=== PATIENT | male | born 1965 | race Caucasian/White ===

== ENCOUNTER 2016-11-26 17:46 | Emergency (ER) | payer SELFPAY ==
[2016-11-26 17:57] VITALS: BP 159/86
[2016-11-26] MEDS ORDERED: Sodium Chloride 0.9% 10 ML Syringe FLUSH PRN (18:13)
[2016-11-26] MEDS ORDERED: Meclizine 12.5 MG Tab PO ONE ×2 (18:14→19:39)
[2016-11-26] MEDS ORDERED: Ondansetron 4 MG/2 ML SDV IVPUSH ONE ×2 (18:14→18:53)
[2016-11-26] MEDS ORDERED: Sodium Chloride 0.9% 1,000 ML IV ONE (18:16)
[2016-11-26] MEDS ORDERED: Ketorolac 30 MG/ML SDV IVPUSH ONE (18:16)
--- NOTE | 2016-11-26 18:17 | EDM.PDOC ---
ED HPI ENT - General Chief Complaint: Neurological Problem Stated Complaint: DIZZY/NAUSEA Time Seen by Provider: 11/26/16 18:00 Source of Information: Reports: Patient History Limitations: Reports: No limitations - History of Present Illness INITIAL COMMENTS - FREE TEXT/NARRATIVE: Gallo presents for evaluation and treatment of dizziness, nausea and vomiting. Patient reports that the dizziness started about 2 weeks ago. He states it has progressively gotten worse and he can no longer take the dizziness and nausea today. Reports that he vomited one time on the way over to the ER. He reports associated symptoms of headache, tinnitus and blurry vision. He reports he has been ill with a cough recently. He reports some chest pain and some shortness of breath which started today. He denies any syncopal episodes. He reports that several years ago he was wearing a hearing aid but no longer wears his does not help with his hearing deficits. Patient wears glassed. The patient was at the [place] [facility] but 10 days ago. Told that he more than likely had an inner ear infection. He has not been seen by a provider. He is unable to make this appointment the [place]. - Related Data Allergies/ADRs: Allergies Allergy/AdvReac Type Severity Reaction Status Date / Time No Known Allergies Allergy Verified 11/26/16 17:53 Home Meds: Home Meds Meclizine [Antivert] 25 mg PO TID PRN #15 tablet 11/26/16 [Rx] Ondansetron [Zofran ODT] 4 mg PO Q8H PRN #15 tab.dis 11/26/16 [Rx] Phenytoin Sodium Extended [Dilantin] 400 mg PO DAILY 11/26/16 [History] Past Medical History Neurological History: Reports: Other (see below) Other Neuro History: epilsepsy Social & Family History - Tobacco Use Smoking Status *Q: Current Every Day Smoker Years of Tobacco use: 25 Packs/Tins Daily: 1 ED ROS ENT - Review of Systems Review Of Systems: See Below Constitutional: Denies: fever, chills HEENT: Reports: Vision change (blurry vision; denies double vision). Denies: Ear pain Respiratory: Reports: shortness of breath, cough Cardiovascular: Reports: Chest pain GI/Abdominal: Reports: Nausea, Vomiting Neurological: Reports: dizziness, headache, gait disturbance. Denies: syncope ED EXAM, ENT - Physical Exam Exam: See Below Exam Limited By: No limitations General Appearance: alert, WD/WN, no apparent distress Eye Exam: bilateral eye: EOMI, nystagmus (with lateral gaze), PERRL Ears: normal external exam, normal canal, hearing grossly normal, normal TMs Nose: normal inspection Mouth/Throat: Normal inspection, Normal gums, Normal lips, Normal oropharynx, Normal teeth Neck: normal inspection Respiratory/Chest: no respiratory distress, lungs clear, normal breath sounds Cardiovascular: normal peripheral pulses, regular rate, rhythm, no murmur Neurological: alert, oriented, normal cognition Psychiatric: normal affect, normal mood Skin: Warm, Dry, Normal color EKG INTERPRETATION EKG Date: 11/26/16 Time: 18:20 Rhythm: NSR Rate (beats/min): 60 [place]: normal P-wave: present QRS: normal ST-T: normal QT: normal Comparison: NA - no prior EKG EKG Interpretation Comments: NSR at 60 bpm. no ACS. Left ventricular hypertrophy. Reviewed by myself and Dr. Olivo. Course - Vital Signs Last Recorded V/S: Last Vital Signs Temp 36.3 C 11/26/16 17:54 Pulse 58 L 11/26/16 17:54 Resp 18 11/26/16 17:54 BP 159/86 H 11/26/16 17:54 Pulse Ox 98 11/26/16 17:54 - Orders/Labs/Meds Labs: Laboratory Tests 11/26/16 11/26/16 Range/Units 18:00 18:00 WBC 6.69 (4.23-9.07) K/mm3 RBC 4.93 (4.63-6.08) M/mm3 Hgb 15.7 (13.7-17.5) gm/L Hct 46.3 (40.1-51.0) % MCV 93.9 H (79.0-92.2) fl MCH 31.8 (25.7-32.2) pg MCHC 33.9 (32.2-35.5) g/dl RDW Std Deviation 46.1 H (35.1-43.9) fL Plt Count 189 (163-337) K/mm3 MPV 10.2 (9.4-12.3) fl Neut % (Auto) 42.5 (34.0-67.9) % Lymph % (Auto) 40.7 (21.8-53.1) % [place] % (Auto) 12.7 H (5.3-12.2) % Eos % (Auto) 3.7 (0.8-7.0) Baso % (Auto) 0.3 (0.1-1.2) % Neut # 2.84 (1.78-5.38) K/mm3 Lymph # 2.72 (1.32-3.57) K/mm3 [place] # 0.85 H (0.30-0.82) K/mm3 Eos # 0.25 (0.04-0.54) K/mm3 Baso # 0.02 (0.01-0.08) K/mm3 Sodium 141 (136-145) mEq/L Potassium 3.9 (3.5-5.1) mEq/L Chloride 106 (98-107) mEq/L Carbon Dioxide 26 (21-32) mEq/L Anion Gap 12.9 (5-15) BUN 21 H (7-18) mg/dL Creatinine 1.0 (0.7-1.3) mg/dL Est Cr Clr Drug Dosing 88.38 mL/min Estimated GFR (MDRD) > 60 (>60) mL/min BUN/Creatinine Ratio 21.0 H (14-18) Glucose 108 H (74-106) mg/dL Calcium 8.7 (8.5-10.1) mg/dL Total Bilirubin 0.2 (0.2-1.0) mg/dL AST 18 (15-37) U/L ALT 40 (16-63) U/L Alkaline Phosphatase 104 (46-116) U/L CK-MB (CK-2) 0.9 (0-3.6) ng/ml Troponin I < 0.017 (0.00-0.056) ng/mL Total Protein 7.3 (6.4-8.2) g/dl Albumin 3.6 (3.4-5.0) g/dl Globulin 3.7 gm/dL Albumin/Globulin Ratio 1.0 (1-2) Meds: Medications Discontinued Medications Generic Name Dose Route Start Last Admin Trade Name Freq PRN Reason Stop Dose Admin Sodium Chloride 1,000 mls @ 999 mls/hr 11/26/16 18:16 11/26/16 18:23 Normal Saline IV 11/26/16 19:16 999 mls/hr ONETIME ONE Administration Promethazine HCl 12.5 mg/ 50.5 mls @ 100 mls/hr 11/26/16 19:38 11/26/16 20:02 Sodium Chloride IV 11/26/16 20:08 100 mls/hr ONETIME ONE Administration Sodium Chloride 500 mls @ 500 mls/hr 11/26/16 19:54 11/26/16 20:00 Normal Saline IV 11/26/16 20:53 500 mls/hr ONETIME ONE Administration Ketorolac Tromethamine 30 mg 11/26/16 18:16 11/26/16 18:22 Toradol IVPUSH 11/26/16 18:17 30 mg ONETIME ONE Administration Meclizine HCl 25 mg 11/26/16 18:14 11/26/16 18:22 Antivert PO 11/26/16 18:15 25 mg ONETIME ONE Administration Meclizine HCl 25 mg 11/26/16 19:39 Antivert PO 11/26/16 19:40 ONETIME ONE Ondansetron HCl 4 mg 11/26/16 18:14 11/26/16 18:22 Zofran IVPUSH 11/26/16 18:15 4 mg ONETIME ONE Administration Ondansetron HCl 4 mg 11/26/16 18:53 11/26/16 18:57 Zofran IVPUSH 11/26/16 18:54 4 mg ONETIME ONE Administration Sodium Chloride 10 ml 11/26/16 18:13 11/26/16 18:30 Saline Flush FLUSH 10 ml ASDIRECTED PRN Administration Keep Vein Open - Radiology Interpretation Free Text/Narrative:: Chest xray shows no acute intrathoracic process. - Re-Assessments/Exams Free Text/Narrative Re-Assessment/Exam: 11/26/16 21:10 Lab studies have returned. WBC is 6.69 communal at 15.7 platelets are 189. Trop is within normal limits at less than 0.017. CK-MBs within normal limits at 0.9. Sodium is 141, potassium is 3.9 chloride is 106. Anion gap is 2.9. Glucose is 108. I reviewed the chest x-ray, EKG and lab results the patient. I feel that he likely has BPPV. I showed him some maneuvers to perform to attempt to reduce his symptoms. He states the medications in the ER have not provided him with much relief. He was sleeping on several occasions when I did check on him. I'll have him perform these maneuvers at home. If hasn't helped, will have him follow up with Dr. Figueroa audiology for additional testing and care. He may also need to see physical therapy for additional maneuvers. Will discharge home. instructions as documented. Departure - Departure Time of Disposition: 21:30 Disposition: Home, Self-Care 01 Condition: fair Clinical Impression: BPPV (benign paroxysmal positional vertigo) Prescriptions: Meclizine [Antivert] 25 mg PO TID PRN #15 tablet PRN Reason: Dizziness Ondansetron [Zofran ODT] 4 mg PO Q8H PRN #15 tab.dis PRN Reason: Nausea Instructions: Vertigo, [id number] Referrals: PCP,None [Primary Care Provider] - Alex Figueroa MD [Physician] - Forms: ED Department Discharge Additional Instructions: Meclinze and zofran as prescribed for dizziness and nausea. Preform maneuver several times a day to attempt to control the dizziness. Pillow on each side an lay for 2 minutes on each side. Follow-up with Dr. Figueroa, audiology, this week if your symptoms do not improve. Drink plenty of fluids. Please return to the ER should your symptoms change or worsen.
[2016-11-26] MEDS ORDERED: Promethazine 12.5 MG in Sodium Chloride 0.9% 50 ML IV ONE (19:38)
[2016-11-26] MEDS ORDERED: Sodium Chloride 0.9% 500 ML IV ONE (19:54)
--- NOTE | 2016-11-28 07:15 | CR ---
Chest: Portable view of the chest was obtained. Comparison: No previous chest imaging. Heart size and mediastinum are normal. Lungs are clear. Bony structures are grossly intact. Impression: 1. Nothing acute is identified on portable chest x-ray. Diagnostic code #1
== END 2016-11-26 21:20 | disposition home or self-care (01) ==
LOC: JD.ED 17:46
DX: H81.10 Benign paroxysmal vertigo, unspecified ear (principal); F17.210 Nicotine dependence, cigarettes, uncomplicated; Z79.899 Other long term (current) drug therapy
CPT/HCPCS: 36415; 71010; 80053; 82553; 84484; 85025; 93005; 96361; 96365; 96375; 96376; 99284; A9270; J1885; J2405; J2550; J7040; J7050

== ENCOUNTER 2017-06-04 18:46 | Emergency (ER) | payer BC ==
[2017-06-04 19:00] VITALS: BP 144/76
[2017-06-04] MEDS ORDERED: Sodium Chloride 0.9% 1,000 ML IV SCH (19:30)
[2017-06-04] MEDS ORDERED: Ondansetron 4 MG Tab.DIS PO ONE (19:57)
--- NOTE | 2017-06-04 20:04 | EDM.PDOC ---
ED HPI GENERAL MEDICAL PROBLEM - General Chief Complaint: Headache Stated Complaint: POSS SINUS INFECTION NAUSEA DIZZYNESS Time Seen by Provider: 06/04/17 18:58 Source of Information: Reports: Patient, Family (), Old Records, RN Notes Reviewed History Limitations: Reports: No Limitations - History of Present Illness INITIAL COMMENTS - FREE TEXT/NARRATIVE: The patient states that he developed symptoms of vertigo around 18:30 tonight, while watching TV. He has had difficulty getting out of bed and walking a straight line. He has associated nausea, but no emesis. He states that he had similar symptoms about 3 months ago. He states that he was evaluated at an outside facility, that a CT scan of his head was performed, demonstrate sinusitis. He states that he was on antibiotics for several weeks before his symptoms improved. Reviewing the medical records, I see that the patient was seen in this ED 2016 with similar symptoms. He was most with BPPV, prescribed meclizine and Zofran, and instructed on canalith repositioning maneuvers. The patient acknowledges that visit, but states that he did not follow-up. He acknowledges that he has had intermittent vertigo since then. The patient reports some sinus congestion on the left, recently. He states that he inhaled some hot pepper this past 06/02/2017, in an attempt to sneeze out the mucus. No recent fever. The patient's PCP is at the [facility]. Headache Pain Score (Numeric/FACES): 9 - Related Data Allergies Allergy/AdvReac Type Severity Reaction Status Date / Time No Known Allergies Allergy Verified 06/04/17 18:55 Home Meds: Home Meds Phenytoin Sodium Extended [Dilantin] 400 mg PO DAILY 11/26/16 [History] Meclizine [Antivert] 25 mg PO Q8H PRN #15 tablet 06/04/17 [Rx] Ondansetron [Zofran ODT] 4 mg PO Q8H PRN #10 tab.dis 06/04/17 [Rx] Past Medical History Respiratory History: Reports: COPD (untreated) Musculoskeletal History: Reports: Fracture Neurological History: Reports: Seizure - Past Surgical History Dermatological Surgical History: Reports: Other (See Below) (Department of an infection to the lower back) Social & Family History - Family History Family Medical History: Noncontributory - Tobacco Use Smoking Status *Q: Current Every Day Smoker Years of Tobacco use: 32 Packs/Tins Daily: 1 Packs/Tins Daily Comment: Down from 4 ppd - Caffeine Use Caffeine Use: Reports: Coffee - Alcohol Use Alcohol Use History: Yes Alcohol Use Frequency: Socially - Recreational Drug Use Recreational Drug Use: No - Living Situation & Occupation Living situation: Reports: , with Spouse, with Family (4 kids) Occupation: Employed ([employer]) ED ROS GENERAL - Review of Systems Review Of Systems: See Below Constitutional: Reports: No Symptoms HEENT: Reports: No Symptoms Respiratory: Reports: No Symptoms Cardiovascular: Reports: No Symptoms Endocrine: Reports: No Symptoms GI/Abdominal: Reports: No Symptoms : Reports: No Symptoms Musculoskeletal: Reports: No Symptoms Skin: Reports: No Symptoms Neurological: Reports: No Symptoms Psychiatric: Reports: No Symptoms Hematologic/Lymphatic: Reports: No Symptoms Immunologic: Reports: No Symptoms ED EXAM, DIZZINESS - Physical Exam Exam: See Below Exam Limited By: No Limitations General Appearance: Alert, WD/WN, No Apparent Distress Eye Exam: Bilateral Eye: EOMI, Normal Inspection, PERRL Nystagmus: worsens with head to L (Lionel-Hallpike induces nystagmus with fast component to the left, bilaterally), reproducible Ears: Normal External Exam, Normal Canal, Hearing Grossly Normal, Normal TMs Nose: Normal Inspection, Normal Mucosa, No Blood Throat/Mouth: Normal Inspection, Normal Lips, Normal Teeth, Normal Gums, Normal Oropharynx, Normal Voice, No Airway Compromise Head Exam: Atraumatic, Normocephalic Vertigo: worsens with head to L, reproducible Neck: Normal Inspection, Supple, Non-Tender, Full Range of Motion Respiratory/Chest: No Respiratory Distress, Lungs Clear, Normal Breath Sounds, No Accessory Muscle Use Cardiovascular: Normal Peripheral Pulses, Regular Rate, Rhythm, No Gallop, No JVD, No Murmur, No Rub GI/Abdominal: Normal Bowel Sounds, Soft, Non-Tender, No Organomegaly, No Distention, No Abnormal Bruit, No Mass (Male) Exam: Deferred Rectal (Males) Exam: Deferred Neurological: Alert, Normal Dorsiflexion, CN II-XII Intact, Normal Plantar Flexion, No Motor/Sensory Deficits, Oriented x 3 Back Exam: Normal Inspection, Full Range of Motion, NT Extremities: Normal Inspection, Normal Range of Motion, No Pedal Edema, Normal Capillary Refill Psychiatric: Normal Affect Skin Exam: Warm, Dry, Intact, Normal Color, No Rash Course - Vital Signs Last Recorded V/S: Last Vital Signs Temp 36.4 C 06/04/17 18:56 Pulse 64 06/04/17 18:56 Resp 16 06/04/17 18:56 BP 144/76 H 06/04/17 18:56 Pulse Ox 97 06/04/17 18:56 - Orders/Labs/Meds Orders: Active Orders 24 hr Category Date Time Status Orthostatic Vital Signs [RC] STAT Care 06/04/17 19:20 Inactive Meds: Medications Discontinued Medications Generic Name Dose Route Start Last Admin Trade Name Freq PRN Reason Stop Dose Admin Meclizine HCl 25 mg 06/04/17 19:56 06/04/17 20:02 Antivert PO 06/04/17 19:57 25 mg ONETIME STA Administration Ondansetron HCl 4 mg 06/04/17 19:57 06/04/17 20:02 Zofran Odt PO 06/04/17 19:58 4 mg ONETIME ONE Administration - Re-Assessments/Exams Free Text/Narrative Re-Assessment/Exam: 06/04/17 19:58 Clinically, the patient has BPPV, with one of his right semicircular canals affected. I have started him on Antivert and Zofran. I will e-prescribe additional Antivert and Zofran, and refer him to ENT for definitive diagnosis and treatment. Departure - Departure Time of Disposition: 19:59 Disposition: Home, Self-Care 01 Condition: Good Clinical Impression: BPPV (benign paroxysmal positional vertigo) - Discharge Information Prescriptions: Meclizine [Antivert] 25 mg PO Q8H PRN #15 tablet PRN Reason: Dizziness Ondansetron [Zofran ODT] 4 mg PO Q8H PRN #10 tab.dis PRN Reason: Nausea/Vomiting Instructions: Benign Positional Vertigo Referrals: PCP,Unknown [Ordering Only Provider] - Zach Fraire MD [Physician] - Forms: ED Department Discharge Additional Instructions: You were seen in the emergency room for dizziness with nausea. Based on your examination, you are suffering from a condition called Benign Paroxysmal Positional Vertigo, also known as BPPV. This is caused when one of the 3 tubes in each of your inner ears is blocked. In your case, it is caused by the blockage of one of the 3 tubes of your right inner ear. Take one tablet of the anti-dizziness medicine meclizine, also known as Antivert , up to every 8 hours, as needed for dizziness. If this medicine is too expensive, you can take [id number] Benadryl instead. Dissolve one tablet of the anti-nausea medicine Zofran on your tongue up to every 8 hours, as needed for nausea/vomiting. Follow-up with the [facility] Thro[facility] Dr. Fraire at the next available appointment. If any other problems, please do not hesitate to return to the ER. - My Orders Last 24 Hours: My Active Orders 06/04/17 19:20 Orthostatic Vital Signs [RC] STAT - Assessment/Plan Last 24 Hours: My Active Orders 06/04/17 19:20 Orthostatic Vital Signs [RC] STAT
== END 2017-06-04 20:22 | disposition home or self-care (01) ==
LOC: JD.ED 18:46
DX: H81.10 Benign paroxysmal vertigo, unspecified ear (principal); J44.9 Chronic obstructive pulmonary disease, unspecified; F17.210 Nicotine dependence, cigarettes, uncomplicated; Z79.899 Other long term (current) drug therapy
CPT/HCPCS: 99284; A9270

== ENCOUNTER 2019-06-19 20:45 | Emergency (ER) | payer BC ==
[2019-06-19] MEDS ORDERED: FLU Vacc QS2019-20(6MOS+)/PF 60 MCG/0.5 ML SYRINGE IM ONE (21:15)
[2019-06-19] MEDS ORDERED: Sodium Chloride 0.9% 10 ML Syringe FLUSH PRN (21:16)
[2019-06-19] MEDS ORDERED: Clindamycin Phosphate 900 MG in Sodium Chloride 0.9% 100 ML IV ONE ×2 (21:18→21:29)
--- NOTE | 2019-06-19 21:37 | EDM.PDOC ---
ED HPI GENERAL MEDICAL PROBLEM - General Chief Complaint: Lower Extremity Injury/Pain Stated Complaint: INFECTED BOIL Time Seen by Provider: 06/19/19 20:55 Source of Information: Reports: Patient, RN Notes Reviewed History Limitations: Reports: No Limitations - History of Present Illness INITIAL COMMENTS - FREE TEXT/NARRATIVE: Patient is a 54-year-old male who presents to the ED for the evaluation of a infected abscess to his left mid vasquez. Patient notes that he's had this abscess present for a few weeks, however he has noticed some increased redness and swelling that presented just today. He does have 2+ pitting edema in his left ankle and into his left foot, he notes that is present from just today alone. He has been using Epsom salts soaks to help with this, however is not doing much for the wound any longer. The patient notes he had a history of a staph infection he was 10 years old. He is not sure if this was MRSA or not. He denies any fevers or chills, he has not taken anything for pain management. He states that it is painful now, as it is rubbing against his boot. He did note some pus-like drainage coming from the wound today. Left Lower Leg Pain Score (Numeric/FACES): 4 - Related Data Allergies Allergy/AdvReac Type Severity Reaction Status Date / Time No Known Allergies Allergy Verified 06/19/19 21:00 Home Meds: Home Meds Phenytoin Sodium Extended [Dilantin] 400 mg PO DAILY 11/26/16 [History] Meclizine [Antivert] 25 mg PO Q8H PRN #15 tablet 06/04/17 [Rx] Aspirin 81 mg PO DAILY 06/19/19 [History] Cannabidiol (Cbd) Extract [CBD Oil] 17 mg PO ASDIRECTED 06/19/19 [History] Clindamycin HCl 300 mg PO TID #30 capsule 06/19/19 [Rx] Multivitamin [Chr-Lyzzny-Snrsc] 1 each PO DAILY 06/19/19 [History] Past Medical History HEENT History: Reports: Impaired Vision Cardiovascular History: Reports: None Respiratory History: Reports: None Gastrointestinal History: Reports: None Genitourinary History: Reports: None Musculoskeletal History: Reports: Arthritis, Fracture Neurological History: Reports: Concussion, Seizure Other Neuro History: epilsepsy Psychiatric History: Reports: None Endocrine/Metabolic History: Reports: None Hematologic History: Reports: None Immunologic History: Reports: None Oncologic (Cancer) History: Reports: None Dermatologic History: Reports: Cellulitis Other Dermatologic History: Abscesses to bilateral lower legs. - Infectious Disease History Infectious Disease History: Reports: MRSA - Past Surgical History Head Surgeries/Procedures: Reports: None Social & Family History - Family History Family Medical History: Noncontributory - Tobacco Use Smoking Status *Q: Current Every Day Smoker Years of Tobacco use: 40 Packs/Tins Daily: 1 - Caffeine Use Caffeine Use: Reports: Coffee - Recreational Drug Use Recreational Drug Use: No - Living Situation & Occupation Living situation: Reports: , with Spouse, with Family (4 kids) Occupation: Employed ([employer]) Review of Systems - Review of Systems Review Of Systems: See Below Constitutional: Denies: Chills, Fever Eyes: Reports: No Symptoms Ears: Reports: No Symptoms Nose: Reports: No Symptoms Mouth/Throat: Reports: No Symptoms Respiratory: Reports: No Symptoms Cardiovascular: Reports: No Symptoms GI/Abdominal: Reports: No Symptoms Genitourinary: Reports: No Symptoms Musculoskeletal: Reports: Leg Pain (L vasquez near wound) Skin: Reports: Lesions (L anterior mid vasquez, roughly 5x10cm ) Neurological: Denies: Numbness, Tingling Psychiatric: Reports: No Symptoms ED EXAM, GENERAL - Physical Exam Exam: See Below Exam Limited By: No Limitations General Appearance: Alert, WD/WN, No Apparent Distress Eye Exam: Bilateral Eye: EOMI Respiratory/Chest: No Respiratory Distress, Lungs Clear, Normal Breath Sounds, No Accessory Muscle Use, Chest Non-Tender Cardiovascular: Normal Peripheral Pulses, Regular Rate, Rhythm, No Murmur Peripheral Pulses: 3+: Dorsalis Pedis (L), Dorsalis Pedis (R) Extremities: Normal Inspection, Normal Capillary Refill, Leg Pain (Left leg, see skin assessment) Neurological: Alert, Oriented, Normal Cognition, No Motor/Sensory Deficits Psychiatric: Normal Affect, Normal Mood Skin Exam: Warm, Dry, Intact, Wound/Incision (L anterior mid vasquez, roughly 5x10cm, the wound itself has a dark scab noted to center, there is surrounding erythema noted to area. The superior portion of the wound is tender to palpation.) Course - Vital Signs Last Recorded V/S: Last Vital Signs Temp 98.2 F 10/02/19 23:10 Pulse 78 06/19/19 23:10 Resp 18 06/19/19 23:10 BP 132/77 06/19/19 23:10 Pulse Ox 96 06/19/19 23:10 - Orders/Labs/Meds Orders: Active Orders 24 hr Category Date Time Status Influenza Vaccine Charge [RC] .DISCHARGE Care 06/19/19 21:05 Active Peripheral IV Care [RC] . DIRECTED Care 06/19/19 21:16 Active Peripheral IV Insertion Adult [OM.PC] Stat Oth 06/19/19 21:16 Ordered Labs: Laboratory Tests 06/19/19 06/19/19 Range/Units 22:12 22:12 WBC 7.31 (4.23-9.07) K/mm3 RBC 4.14 L (4.63-6.08) M/mm3 Hgb 13.6 L D (13.7-17.5) gm/dl Hct 38.9 L (40.1-51.0) % MCV 94.0 H (79.0-92.2) fl MCH 32.9 H (25.7-32.2) pg MCHC 35.0 (32.2-35.5) g/dl RDW Std Deviation 43.7 (35.1-43.9) fL Plt Count 191 (163-337) K/mm3 MPV 9.7 (9.4-12.3) fl Neutrophils % (Manual) 66 H (40-60) % Band Neutrophils % 1 (0-10) % Lymphocytes % (Manual) 23 (20-40) % Atypical Lymphs % 0 % Monocytes % (Manual) 9 (2-10) % Eosinophils % (Manual) 1 (0.8-7.0) % Basophils % (Manual) 0 L (0.2-1.2) Platelet Estimate Adequate RBC Morph Comment Normal Sodium 139 (136-145) mEq/L Potassium 3.8 (3.5-5.1) mEq/L Chloride 103 (98-107) mEq/L Carbon Dioxide 28 (21-32) mEq/L Anion Gap 11.8 (5-15) BUN 20 H (7-18) mg/dL Creatinine 0.7 (0.7-1.3) mg/dL Est Cr Clr Drug Dosing 122.04 mL/min Estimated GFR (MDRD) > 60 (>60) mL/min BUN/Creatinine Ratio 28.6 H (14-18) Glucose 102 (74-106) mg/dL Calcium 8.8 (8.5-10.1) mg/dL Total Bilirubin 0.3 (0.2-1.0) mg/dL AST 16 (15-37) U/L ALT 26 (16-63) U/L Alkaline Phosphatase 117 H (46-116) U/L C-Reactive Protein 6.2 H* (<1.0) mg/dL Total Protein 7.2 (6.4-8.2) g/dl Albumin 3.2 L (3.4-5.0) g/dl Globulin 4.0 gm/dL Albumin/Globulin Ratio 0.8 L (1-2) Meds: Medications Discontinued Medications Generic Name Dose Route Start Last Admin Trade Name Freq PRN Reason Stop Dose Admin Clindamycin Phosphate 900 mg/ 106 mls @ 200 mls/hr 06/19/19 21:18 Sodium Chloride IV 06/19/19 21:49 ONETIME ONE Clindamycin Phosphate 900 mg/ 106 mls @ 200 mls/hr 06/19/19 21:29 06/19/19 22 :17 Sodium Chloride IV 06/19/19 22:00 200 mls/hr ONETIME ONE Administration Sodium Chloride 100 mls @ 200 mls/hr 06/19/19 21:45 Normal Saline IV ASDIRECTED FRANCISCA Influenza Virus Vaccine 1 each 06/19/19 21:05 Pharmacy To Dose - Influenza Vaccine IM 06/19/19 21:06 ONETIME ONE Influenza Virus Vaccine 60 mcg 06/19/19 21:15 06/19/19 21:56 Fluzone Quad Syringe IM 06/19/19 21:16 60 mcg .ONCE ONE Administration Sodium Chloride 10 ml 06/19/19 21:16 06/19/19 22:20 Saline Flush FLUSH 10 ml ASDIRECTED PRN Administration Keep Vein Open - Re-Assessments/Exams Free Text/Narrative Re-Assessment/Exam: 06/19/19 21:37 Patient presents to the ED for the evaluation of an infected wound on his left leg. There is an obvious cellulitis noted to around the wound. I have ordered CBC, CMP, and CRP, but will start him on antibiotics, clindamycin 900mg to start tonight then 300mg TID for 10 days at least. 06/19/19 22:56 Patient's labs are back, and demonstrated a normal white count but increased CRP at 6.2. Metabolic panel is also without acute abnormalities. We'll discharge home with the above clindamycin and other general recommendations. Departure - Departure Time of Disposition: 22:43 Disposition: Home, Self-Care 01 Condition: Fair Clinical Impression: Cellulitis Qualifiers: Site of cellulitis: extremity Site of cellulitis of extremity: lower extremity Laterality: left Qualified Code(s): L03.116 - Cellulitis of left lower limb - Discharge Information *PRESCRIPTION DRUG MONITORING PROGRAM REVIEWED*: No *COPY OF PRESCRIPTION DRUG MONITORING REPORT IN PATIENT SHAUN: No Prescriptions: Clindamycin HCl 300 mg PO TID #30 capsule Instructions: Cellulitis, Adult, [id number] Referrals: PCP,None [Primary Care Provider] - Forms: ED Department Discharge Additional Instructions: You were evaluated in the ED today for your lesion on your left leg. It is likely that this is due to a cellulitis, due to the surrounding redness of the wound, you were given a dose of IV antibiotics in the ER, and will be given a prescription for oral antibiotics, you will need to take these 3 times daily for 10 days. You may try to pad the wound with some gauze in a sort of bandage fashion to help pad the area against your boot. You may take 500 mg Tylenol or 600 mg ibuprofen every 6 hours as needed for further pain relief. Please return to the ED if your symptoms change or worsen. - My Orders Last 24 Hours: My Active Orders 06/19/19 21:05 Influenza Vaccine Charge [RC] .DISCHARGE 06/19/19 21:16 Peripheral IV Care [RC] . DIRECTED Peripheral IV Insertion Adult [OM.PC] Stat - Assessment/Plan Last 24 Hours: My Active Orders 06/19/19 21:05 Influenza Vaccine Charge [RC] .DISCHARGE 06/19/19 21:16 Peripheral IV Care [RC] . DIRECTED Peripheral IV Insertion Adult [OM.PC] Stat
[2019-06-19] MEDS ORDERED: Sodium Chloride 0.9% 100 ML IV SCH (21:45)
[2019-06-19 23:27] VITALS: BP 132/77; PULSE 78
== END 2019-06-19 23:11 | disposition home or self-care (01) ==
LOC: JD.ED 20:45
DX: L03.116 Cellulitis of left lower limb (principal); G40.909 Epilepsy, unspecified, not intractable, without status epilepticus; F17.210 Nicotine dependence, cigarettes, uncomplicated; Z79.899 Other long term (current) drug therapy; Z79.82 Long term (current) use of aspirin; Z23 Encounter for immunization
CPT/HCPCS: 36415; 80053; 85007; 85027; 86140; 90471; 90686; 96365; 99283; J3490; J7030; G0008